=== PATIENT | female | born 1965 | race Two or more races ===

== ENCOUNTER 2021-12-03 06:39 | Emergency (ER) | payer BC ==
[2021-12-03] MEDS ORDERED: BENADRYL ITCH28.3 G1 TP (07:59)
[2021-12-03] MEDS ORDERED: PREDNISONE 20 M20 MG PO (07:59)
[2021-12-03] MEDS ORDERED: ZYRTEC10 M3 PO (07:59)
== END 2021-12-03 08:24 | disposition home or self-care (01) ==
LOC: EDBD 06:39 → ER1 06:39
DX: L50.9 Urticaria, unspecified (principal); Z88.0 Allergy status to penicillin
CPT/HCPCS: 99282